=== PATIENT | male | born 1930 | race Caucasian/White ===

== ENCOUNTER 2019-10-03 20:06 | Inpatient (IN) | payer MEDICARE, OTHER ==
[~2019-10-03] VITALS: Ht 180.3 cm; Wt 86.7 kg
--- NOTE | 2019-10-03 20:20 | NUR ---
Dr. Corado at bedside for MSE
[2019-10-03 20:59] LABS: BASOPHILS % (AUTO) 0.5 % (0.0-2.0); EOSINOPHILS # (AUTO) 0.1 K/uL (0.0-0.7); EOSINOPHILS % (AUTO) 1.3 % (0.0-7.0); HEMATOCRIT 43.7 % (36.7-47.1); HEMOGLOBIN 14.9 g/dL (12.5-16.3); LYMPHOCYTES # (AUTO) 1.9 K/uL (20.0-40.0); LYMPHOCYTES % (AUTO) 23.6 % (20.5-51.5); MEAN CORPUSCULAR HEMOGLOBIN 34.1 uug (23.8-33.4); MEAN CORPUSCULAR HGB CONC 34 g/dL (32.5-36.3); MEAN CORPUSCULAR VOLUME 100.3 fL (73.0-96.2); MONOCYTES # (AUTO) 0.9 K/uL (2.0-10.0); MONOCYTES % (AUTO) 11.1 % (0.0-11.0); NEUTROPHILS # (AUTO) 5.1 K/uL (1.8-8.9); NEUTROPHILS % (AUTO) 63.5 % (38.5-71.5); PLATELET COUNT (AUTO) 195 K/uL (152-348); RED BLOOD CELL COUNT(AUTO) 4.35 MIL/uL (4.06-5.63)
[2019-10-03 21:11] LABS: CARBON DIOXIDE 31 mmol/L (21-32); CHLORIDE 103 mmol/L (98-107); CREATININE 1.4 mg/dL (0.6-1.3); GLUCOSE 89 mg/dL (74-106); POTASSIUM 4.4 mmol/L (3.5-5.1); UREA NITROGEN, BLOOD 20 mg/dL (7-18)
[2019-10-03] MEDS ORDERED: FUROSEMIDE 20 MG/2 ML VIAL IV ONE (21:30)
[2019-10-03] MEDS ORDERED: FUROSEMIDE 20 MG/2 ML VIAL ONE (21:31)
[2019-10-03 21:38] LABS: ALANINE AMINOTRANSFERASE 22 U/L (16-63); ALKALINE PHOSPHATASE 79 U/L (50-136); ASPARTATE AMINOTRANSFERASE 19 U/L (15-37); BILIRUBIN,DIRECT 0.3 mg/dL (0.0-0.2); BILIRUBIN,TOTAL 1.1 mg/dL (0.2-1.0); TOTAL PROTEIN, SERUM 8.1 g/dL (6.4-8.2)
--- NOTE | 2019-10-03 22:20 | NUR ---
Pt. admitted to Telemetry , under care of Dr. Ramos Belongs List completed
[2019-10-03 22:45] LABS: *BILIRUBIN,URIN NEGATIVE (NEGATIVE); *BLOOD, URINE 3+ (NEGATIVE); *COLOR,URINE YELLOW (YELLOW); *KETONES,URINE NEGATIVE (NEGATIVE); *UROBILINOGEN,URINE 0.2 E.U./dl (NORMAL); LEUKOCYTE ESTERASE ,URINE NEGATIVE (NEGATIVE); NITRITE, URINE NEGATIVE (NEGATIVE); UGLUCOSE NEGATIVE (NEGATIVE)
[2019-10-03 22:52] LABS: *CLARITY,URINE HAZY (CLEAR)
[2019-10-03 22:57] LABS: BACTERIA,URINE NONE SEEN /HPF (NONE SEEN); RBC,URINE 50-80 /HPF (0-3); SQUAMOUS EPITHELIAL CELL,UR FEW /HPF (NONE SEEN); WBC,URINE 0-3 /HPF (0-3)
[2019-10-03] MEDS ORDERED: ACETAMINOPHEN 325 MG TABLET PO PRN (23:00)
[2019-10-03] MEDS ORDERED: MORPHINE SULFATE 2 MG/1 ML DISP.SYRIN IV PRN (23:00)
[2019-10-03] MEDS ORDERED: ALBUTEROL SULFATE 2.5 MG/3 ML NEBU NEB PRN (23:00)
[2019-10-03] MEDS ORDERED: ONDANSETRON 4 MG/2 ML VIAL IV PRN (23:00)
--- NOTE | 2019-10-03 23:30 | NUR ---
Pt arrived on the floor around 2240, accompanied by ER nurse. Patient is awake, alert and verbally responsive. Mainly Azeri speaking but able to respond in divehi for basic needs/questions. Full assessment done, no noted break of skin integrity. With +1 pitting edema on lower legs to ankles. Lung sounds clear on bilateral upper lobes but with coarse crackles, slightly diminished on bilateral lower lobes. Some history obtained from patient. However, vaccination status needs to be followed up. All belongings accounted for. Kept on O2 2LPM via NC. HR elevated still at around 110-140. Sinus/Junctional Tach on monitor. Dr. Ramos made aware of patient's condition. Admission orders noted and carried out. Kept patient comfortable and oriented to surroundings. Will continue to monitor
[2019-10-03 23:40] VITALS: BP 113/71
[2019-10-04 00:44] VITALS: BP 96/60
[2019-10-04] MEDS: PANTOPRAZOLE SODIUM 40 MG TABLET.DR PO SCH (06:38)
[2019-10-04 06:44] LABS: BASOPHILS % (AUTO) 0.5 % (0.0-2.0); EOSINOPHILS # (AUTO) 0.1 K/uL (0.0-0.7); EOSINOPHILS % (AUTO) 1.2 % (0.0-7.0); HEMATOCRIT 41.6 % (36.7-47.1); HEMOGLOBIN 14.3 g/dL (12.5-16.3); LYMPHOCYTES # (AUTO) 1.9 K/uL (20.0-40.0); LYMPHOCYTES % (AUTO) 25.6 % (20.5-51.5); MEAN CORPUSCULAR HEMOGLOBIN 34.3 uug (23.8-33.4); MEAN CORPUSCULAR HGB CONC 34 g/dL (32.5-36.3); MEAN CORPUSCULAR VOLUME 99.9 fL (73.0-96.2); MONOCYTES # (AUTO) 0.8 K/uL (2.0-10.0); MONOCYTES % (AUTO) 10.9 % (0.0-11.0); NEUTROPHILS # (AUTO) 4.6 K/uL (1.8-8.9); NEUTROPHILS % (AUTO) 61.8 % (38.5-71.5); PLATELET COUNT (AUTO) 174 K/uL (152-348); RED BLOOD CELL COUNT(AUTO) 4.17 MIL/uL (4.06-5.63); WHITE BLOOD COUNT (AUTO) 7.5 K/uL (3.6-10.2)
[2019-10-04 07:33] LABS: CARBON DIOXIDE 27 mmol/L (21-32); CHLORIDE 102 mmol/L (98-107); CREATININE 1.3 mg/dL (0.6-1.3); GLUCOSE 102 mg/dL (74-106); POTASSIUM 3.9 mmol/L (3.5-5.1); UREA NITROGEN, BLOOD 19 mg/dL (7-18)
--- NOTE | 2019-10-04 08:00 | NUR ---
Pt A/O x 4 to person, place, time and situation. Pt mainly Andorran speaking, but able to respond in Sami for basic needs/questions. No distress noted or reported. Pt denied any pain or disocomfort. Lung sounds clear throughout. Pt on 2L O2 via N/C. O2 Sat=97%. Noted pitting edema of 1+ to BLE and ankles. Noted SB with 1st Degree AVB on environmental monitoring technician. Pt Asymptomatic. Pt noted to be incontinent of bowels. Pt with large soft, brown BM. Cleaned pt and changed diaper. Noted redness to perineal area. Applied Z-Guard cream for skin protection. Pt able to turn self in bed. Encouraged pt to turn self every 2 hours and do as many ADL's as he can possibly do and staff will render care for all ADL's that pt unable to do. All safety precautions in place. Monitoring continued.
[2019-10-04 08:01] LABS: THYROID STIMULATING HORMONE 0.778 mIU/mL (0.358-3.740)
[2019-10-04 08:03] LABS: ALANINE AMINOTRANSFERASE 18 U/L (16-63); ALKALINE PHOSPHATASE 75 U/L (50-136); ASPARTATE AMINOTRANSFERASE 16 U/L (15-37); BILIRUBIN,TOTAL 1.3 mg/dL (0.2-1.0); CHOLESTEROL 97 mg/dL (<200); HDL CHOLESTEROL 53 mg/dL (40-60); MAGNESIUM 1.9 mg/dL (1.8-2.4); PHOSPHOROUS 2.7 mg/dL (2.5-4.9); TRIGLYCERIDES 69 MG/DL (30-150)
[2019-10-04] MEDS ORDERED: APIXABAN 2.5 MG TABLET PO SCH (09:00)
[2019-10-04] MEDS ORDERED: FUROSEMIDE 20 MG/2 ML VIAL IV SCH (09:00)
[2019-10-04] MEDS ORDERED: BISACODYL 5 MG TABLET.DR PO SCH (09:00)
[2019-10-04] MEDS: METOPROLOL TARTRATE 50 MG TABLET PO SCH ×2 (09:00→20:37)
[2019-10-04] MEDS ORDERED: AMLODIPINE 5 MG TABLET PO SCH (09:00)
[2019-10-04] MEDS: AMIODARONE HCL 200 MG TABLET PO SCH (09:44)
[2019-10-04] MEDS: FINASTERIDE 5 MG TABLET PO SCH (09:45)
[2019-10-04] MEDS: LEVETIRACETAM 500 MG TABLET PO SCH ×2 (09:48→20:36)
[2019-10-04] MEDS: APIXABAN 5 MG TABLET PO SCH ×2 (09:48→20:39)
[2019-10-04] MEDS: LOSARTAN POTASSIUM 25 MG TABLET PO SCH ×2 (10:35→20:37)
[2019-10-04 11:30] VITALS: BP 107/53
--- NOTE | 2019-10-04 15:05 | NUR ---
Collected rapid Influenza A and B sample and sent to lab. Awaiting results.
[2019-10-04 15:40] VITALS: BP 107/55
--- NOTE | 2019-10-04 18:22 | NUR ---
No distress noted or reported. Pt denied any pain or discomfort during shift. No SZ activity noted during shift. NO adverse events during shift. Pt turned every 2 hours to prevent any skin breakdown. VS stable. Pt safety maintained during shift.
--- NOTE | 2019-10-04 19:00 | NUR ---
Pt safely transferred to Room 139-A with all belongings and Chart given to Charge Nurse, NATHAN Mtz. Addendum: 10/04/19 at 1937 by TONY BOBBY RN Disregard above Note. Wrong Patient.
--- NOTE | 2019-10-04 19:30 | NUR ---
Received patient awake and alert in bed, no signs of acute distress noted. A/Ox4. Indonesian speaking, but able to make needs known. no complaints of pain or SOB. Vitals WNL. heplock on the right forearm is intact and patent. Safety measures initiated. Bed is low and locked, call light within reach. Will continue to monitor.
[2019-10-04 20:07] VITALS: BP 117/63
[2019-10-04] MEDS: BISACODYL 5 MG TABLET.DR PO SCH (20:36)
[2019-10-04] MEDS ORDERED: ATORVASTATIN 20 MG TABLET PO SCH (21:00)
[2019-10-04] MEDS ORDERED: TAMSULOSIN HCL 0.4 MG CAP.SR.24H PO SCH (21:00)
[2019-10-04] MEDS ORDERED: DOCUSATE SODIUM 100 MG CAPSULE PO SCH (21:00)
[2019-10-05] VITALS: BP 115/65
[2019-10-05 04:00] VITALS: BP 96/51
--- NOTE | 2019-10-05 05:40 | NUR ---
Patient slept intermittently. Heplock noted to be red/bruised, patient requested to take it out. Inserted new #20 gauge to right forearm with good flow. Safety measures given. Will endorse to next shift.
[2019-10-05] MEDS: PANTOPRAZOLE SODIUM 40 MG TABLET.DR PO SCH (06:24)
--- NOTE | 2019-10-05 08:00 | NUR ---
Received patient awake and alert in bed, no signs of acute distress noted or sob. A/Ox4. Azeri speaking, but able to make needs known. no complaints of pain. Vitals WNL. heplock on the right forearm is intact and patent. Safety measures initiated. Bed is low and locked, call light within reach. Pt on tele monitoring with sinus rhythm. Will continue to monitor for safety and comfort.
[2019-10-05] MEDS: LOSARTAN POTASSIUM 25 MG TABLET PO SCH (09:00)
[2019-10-05] MEDS ORDERED: FUROSEMIDE 20 MG TABLET PO SCH (09:00)
[2019-10-05] MEDS: METOPROLOL TARTRATE 50 MG TABLET PO SCH (09:00)
[2019-10-05] MEDS: FINASTERIDE 5 MG TABLET PO SCH (09:43)
[2019-10-05] MEDS: AMIODARONE HCL 200 MG TABLET PO SCH (09:43)
[2019-10-05] MEDS: LEVETIRACETAM 500 MG TABLET PO SCH (09:44)
[2019-10-05] MEDS: BISACODYL 5 MG TABLET.DR PO SCH (09:44)
[2019-10-05] MEDS: APIXABAN 5 MG TABLET PO SCH (09:46)
[2019-10-05 10:32] LABS: BASOPHILS % (AUTO) 0.3 % (0.0-2.0); EOSINOPHILS # (AUTO) 0.1 K/uL (0.0-0.7); EOSINOPHILS % (AUTO) 1.5 % (0.0-7.0); HEMATOCRIT 40.3 % (36.7-47.1); HEMOGLOBIN 13.7 g/dL (12.5-16.3); LYMPHOCYTES # (AUTO) 1.3 K/uL (20.0-40.0); LYMPHOCYTES % (AUTO) 18.6 % (20.5-51.5); MEAN CORPUSCULAR HGB CONC 34 g/dL (32.5-36.3); MEAN CORPUSCULAR VOLUME 99.6 fL (73.0-96.2); MONOCYTES # (AUTO) 0.6 K/uL (2.0-10.0); MONOCYTES % (AUTO) 9.6 % (0.0-11.0); NEUTROPHILS # (AUTO) 4.7 K/uL (1.8-8.9); PLATELET COUNT (AUTO) 170 K/uL (152-348); RED BLOOD CELL COUNT(AUTO) 4.05 MIL/uL (4.06-5.63); WHITE BLOOD COUNT (AUTO) 6.7 K/uL (3.6-10.2)
[2019-10-05 10:39] LABS: CARBON DIOXIDE 27 mmol/L (21-32); CHLORIDE 100 mmol/L (98-107); CREATININE 1.4 mg/dL (0.6-1.3); GLUCOSE 188 mg/dL (74-106); MAGNESIUM 1.9 mg/dL (1.8-2.4); POTASSIUM 3.4 mmol/L (3.5-5.1); UREA NITROGEN, BLOOD 25 mg/dL (7-18)
[2019-10-05 11:08] VITALS: BP 101/55
[2019-10-05 15:06] VITALS: BP 101/58
--- NOTE | 2019-10-05 18:00 | NUR ---
PT HAS BEEN DISCHARGED. ELECTRICAL ASSEMBLY TECHNICIAN CLEARED PT AFTER MD MUNOZ DISCHARGED PT. NO ACUTE DISTRESS OR SOB NOTED. FAMILY AT BEDSIDE. DISCHARGE INSTRUCTIONS GIVEN TO PT WITH GOOD UNDERSTANDING. RX TO PHARMACY. IV REMOVED INTACT. BELONGINGS RETURNED. PT ESCORTED VIA WHEELCHAIR BY STAFF.
== END 2019-10-05 18:10 | disposition home or self-care (01) | DRG 291 ==
LOC: ER 20:06 → TELE3 22:25
PROVIDERS: ADMIT Internal Medicine
DX: I13.0 Hypertensive heart and chronic kidney disease with heart failure and stage 1 through stage 4 chronic kidney disease, or unspecified chronic kidney disease (principal); I50.33 Acute on chronic diastolic (congestive) heart failure; I47.1 Supraventricular tachycardia; E87.1 Hypo-osmolality and hyponatremia; N17.9 Acute kidney failure, unspecified; N18.9 Chronic kidney disease, unspecified; I25.10 Atherosclerotic heart disease of native coronary artery without angina pectoris; Z95.1 Presence of aortocoronary bypass graft; N40.0 Benign prostatic hyperplasia without lower urinary tract symptoms; I48.0 Paroxysmal atrial fibrillation; Z79.01 Long term (current) use of anticoagulants; I65.29 Occlusion and stenosis of unspecified carotid artery; E83.51 Hypocalcemia; E87.6 Hypokalemia; T46.5X5A Adverse effect of other antihypertensive drugs, initial encounter; T50.2X5A Adverse effect of carbonic-anhydrase inhibitors, benzothiadiazides and other diuretics, initial encounter; Y92.039 Unspecified place in apartment as the place of occurrence of the external cause
CPT/HCPCS: 36415; 70030-TC; 71045; 71270; 83605; 83735; 84100; 84153; 84443; 85025; 85730; 87040; 87086; 87400; 93005; 93307; A4663; G0378; J1940